=== PATIENT | female | born 1995 | race Caucasian/White ===

== ENCOUNTER 2017-09-23 18:54 | Inpatient (IN) | payer OTHER ==
[~2017-09-23] VITALS: Ht 170.2 cm; Wt 68.0 kg
[~2017-09-23 18:54] MED LIST: AZIT250 PO; Colace100 MG PO; IBUP600 PO; IBUP800 PO; OXYACE5T PO; RXHYDACE PO; TRAM50 PO; Verotin-Gr Cap1 EACH PO
[2017-09-23 19:56] LABS: BASOPHILS ABSOLUTE AUTO 0.03 K/mm3 (0.00-0.23); BASOPHILS PERCENT AUTO 0 % (0-2); EOSINOPHILS ABSOLUTE AUTO 0.05 K/mm3 (0.00-0.68); EOSINOPHILS PERCENT AUTO 0 % (0-6); Hematocrit 36.6 % (33.0-51.0); Hemoglobin 11.8 g/dL (11.5-16.0); IMMATURE GRAN ABSOLUTE AUTO 0.04 K/mm3 (0.00-0.10); IMMATURE GRAN PERCENT AUTO 0 % (0-1); LYMPHOCYTES ABSOLUTE AUTO 1.95 K/mm3 (0.84-5.20); LYMPHOCYTES PERCENT AUTO 16 % (21-46); MONOCYTES ABSOLUTE AUTO 0.66 K/mm3 (0.16-1.47); MONOCYTES PERCENT AUTO 5 % (4-13); Mean Corpuscular HGB 25.4 pg (26.0-34.0); Mean Corpuscular HGB Conc 32.2 g/dL (31.5-36.5); Mean Corpuscular Volume 79 fL (80-100); Mean Platelet Volume 9.4 fL (9.1-12.4); NEUTROPHILS PERCENT AUTO 78 % (41-73); Platelet Count 346 K/mm3 (150-400); RDW Coefficient Variation 18.1 % (11.7-14.2); RDW Standard Deviation 50.8 fL (35.1-46.3); Red Blood Cell Count 4.64 M/mm3 (3.80-5.20); White Blood Cell Count 12.13 K/mm3 (4.00-11.30)
[2017-09-23 20:26] LABS: U Amphetamine Screen Not Detected; U Barbituate Screen Not Detected; U Benzodiazapine Screen Not Detected; U Buprenorphine Screen Not Detected; U Cannabinoids Screen DETECTED; U Cocaine Screen Not Detected; U Methadone Screen Not Detected; U Methamphetamine Screen Not Detected; U Opiates Screen Not Detected; U Oxycodone Screen Not Detected; U Phencyclidine Screen Not Detected; U Propoxyphene Screen Not Detected
[2017-09-25 07:35] LABS: Hepatitis C Antibody Non Reactive (NR)
[2017-09-25] MEDS ORDERED: IBUP800 PO (11:34)
[2017-09-25 15:13] LABS: HSV II IgG Type Specific Ab Negative (NEG); Herpes Simplex IgM Antibody Positive (NEG)
== END 2017-09-25 20:20 | disposition home or self-care (01) | DRG 775 ==
LOC: OBS 18:54 → BC 18:57 → OBS 19:30 → BC 19:31
PROVIDERS: Obstetrics & Gynecology
PROC: 10E0XZZ Delivery of Products of Conception, External Approach (ICD-10-PCS; principal; 2017-09-23)
DX: O80 Encounter for full-term uncomplicated delivery (principal); Z37.0 Single live birth; Z3A.39 39 weeks gestation of pregnancy
CPT/HCPCS: 36415; 85025; 86694; 86695; 86696; 86704; 86708; 86709; 86762; 86803; 86850; 86900; 86901; 87340; 87389; G0480; J0290; J1885; J2210; J2590; J7120

== ENCOUNTER 2019-04-26 11:50 | Inpatient (IN) | payer OTHER ==
[~2019-04-26] VITALS: Ht 170.2 cm; Wt 68.0 kg
[2019-04-26 12:33] LABS: BASOPHILS ABSOLUTE AUTO 0.03 K/mm3 (0.00-0.23); BASOPHILS PERCENT AUTO 0 % (0-2); EOSINOPHILS ABSOLUTE AUTO 0.05 K/mm3 (0.00-0.68); EOSINOPHILS PERCENT AUTO 0 % (0-6); Hematocrit 29.7 % (33.0-51.0); Hemoglobin 8.9 g/dL (11.5-16.0); IMMATURE GRAN ABSOLUTE AUTO 0.16 K/mm3 (0.00-0.10); IMMATURE GRAN PERCENT AUTO 1 % (0-1); LYMPHOCYTES ABSOLUTE AUTO 1.91 K/mm3 (0.84-5.20); LYMPHOCYTES PERCENT AUTO 15 % (21-46); MONOCYTES ABSOLUTE AUTO 0.87 K/mm3 (0.16-1.47); MONOCYTES PERCENT AUTO 7 % (4-13); Mean Corpuscular HGB 22.5 pg (26.0-34.0); Mean Corpuscular Volume 75 fL (80-100); Mean Platelet Volume 9.7 fL (9.1-12.4); NEUTROPHILS ABSOLUTE AUTO 9.81 K/mm3 (1.96-9.15); NEUTROPHILS PERCENT AUTO 77 % (41-73); NRBC ABSOLUTE 0.02 K/mm3 (0.00-0.02); NRBC Auto 0.2 /100 WBC (0.0-0.2); Platelet Count 276 K/mm3 (150-400); RDW Coefficient Variation 17.1 % (11.7-14.2); RDW Standard Deviation 46.3 fL (35.1-46.3); Red Blood Cell Count 3.96 M/mm3 (3.80-5.20); White Blood Cell Count 12.83 K/mm3 (4.00-11.30)
[2019-04-27 05:30] LABS: Hematocrit 27.3 % (33.0-51.0); Hemoglobin 8.2 g/dL (11.5-16.0); Mean Corpuscular HGB 22.5 pg (26.0-34.0); Mean Corpuscular Volume 75 fL (80-100); Mean Platelet Volume 10.2 fL (9.1-12.4); NRBC ABSOLUTE 0.02 K/mm3 (0.00-0.02); NRBC Auto 0.1 /100 WBC (0.0-0.2); Platelet Count 231 K/mm3 (150-400); Red Blood Cell Count 3.64 M/mm3 (3.80-5.20); White Blood Cell Count 14.11 K/mm3 (4.00-11.30)
--- NOTE | 2019-04-27 06:49 | NUR ---
dental laboratory worker came out to inform rn that pt was sleeping with the baby in the bed and was not easily aroused. rn went into room and woke pt up to explain that baby needs to be placed in bassinet when pt is drowsy or sleeping.
--- NOTE | 2019-04-27 08:30 | NUR ---
PT AWAKEN FOR VS. ENCOURAGED TO USE BRP R/T DISPLACED UTERUS. PT UP TO BRP AND VOIDED. CONSENTED TO UTOX AFTER DISCUSSING REASONS THAT IT IS IMPORTANT FOR PT TO BE HONEST WITH STAFF ABOUT DRUG USE IF SHE DESIRES HELP/TREATMENT. PT VERBALLY CONSENTS. LINENS CHANGED, ROOM CLEANED, PT R/T BED AND VERBALLY ADMITS TO METH USE, LAST USE 1 WEEK AGO. PT ENCOURAGED TO BE OPEN ABOUT HER USE AND PT ADMITS SHE DOES WANT TO GET CLEAN. PT CONCERNED SHE WILL NOT LEAVE HOSPITAL WITH NB. PT BREAKS DOWN AND CRIES WHEN ASKED ABOUT HER OTHER CHILDREN. STATES SHE HAS NO RELATIONSHIP WITH THEM. PT STATES SHE WOULD BE WILLING TO DO INPATIENT TREATMENT. REPORTS SHE IS IN A SAFE RELATIONSHIP WITH STEPHY WHO IS CURRENTLY CLEAN. HE SUPPORTS HER GETTING CLEAN. SHE REPORTS A GOOD RELATIONSHIP WITH HER SISTER WHO IS ALSO CLEAN AND HAS A GOOD SUPPORT PERSON, TAZ, WHO WAS AT THE DELIVERY A SUPPORT PERSON. SHE STATES SHE LIVES AT A [facility] IN [facility] WITH A GENTLEMAN AND REPORTS SHE IS IN A HOME THAT THERE IS NO DRUG USE. PT ENCOURAGED TO WORK ON PAPER WORK AND FILL OUT [employer] PAPERWORK TO GET ADDITIONAL SUPPORT. CONSENTED TO A C.O.R.E. REFERRAL. DISCUSSED WITH HER THAT Nikhil FORRESTER CNM, DR. CANO AND STAFF WERE ALL HERE TO HELP HER AND FACILITATE IN HER GETTING CLEAN IF SHE DESIRED BUT ENCOURAGED TO BE OPEN AND HONEST WITH. INFORMED HER THAT [facility] HAS BEEN NOTIFIED AND THAT THEY WILL BE SENDING A WORKER OUT TODAY AND REASSURED HER THAT THIS WAS ALL TO HELP HER. PT DOES HAVE MULTIPLE RINGS ON AND LEFT THUMB WAS NOTED TO BE SWOLLEN. ENCOURAGED HER TO REMOVE RINGS. PT WAS UNABLE TO DO A RING CUTTER WAS BROUGHT IN TO REMOVE THE RINGS. ALL RINGS PLACED IN A LABELED SPECI CUP AND GIVEN TO PATIENT. PT EATING BREAKFAST AND INTERACTING WITH ARI AND Logan KEYES.
[2019-04-27 09:36] LABS: U Amphetamine Screen DETECTED; U Barbituate Screen Not Detected; U Benzodiazapine Screen Not Detected; U Buprenorphine Screen Not Detected; U Cannabinoids Screen DETECTED; U Cocaine Screen Not Detected; U Methadone Screen Not Detected; U Methamphetamine Screen DETECTED; U Opiates Screen Not Detected; U Oxycodone Screen Not Detected; U Phencyclidine Screen Not Detected; U Propoxyphene Screen Not Detected
--- NOTE | 2019-04-27 13:50 | NUR ---
SAFE SLEEPING DISCUSSED WITH MOTHER THE IMPORTANCE OF NOT SLEEPING WHILE HOLDING BABY IN BED. PATIENT VERBALIZED UNDERSTANING FOR THE SAFTEY OF THE SHE SHOULD BE PLACED IN HER CRIB IF PT IS DROWSY.
--- NOTE | 2019-04-27 14:14 | NUR ---
BOTTLE FEEDING ASSIST MOM HOLDING SLEEPING BABY, SHE REPORTS THAT SHE PLANS TO BOTTLE FEED AND THAT SHE FED HER OTHER BABIES VIA BOTTLE. INSTRUCTED IN PACED BOTTLE FEEDING AND BOTTLE FEEDING HAND OUT GIVEN.
--- NOTE | 2019-04-27 15:00 | NUR ---
pt verbalizes understanding. no questions at this time. pt would like us to make her ppfu visit with shayna boyce cnm. plan d/c to boarder this afternoon.
--- NOTE | 2019-04-27 15:07 | NUR ---
CORE REFERAL CORE REFERAL FILLED OUT AND FAXED. PATIENT IS AWARE THAT THIS SERVICE WILL BE CONTACTING HER.
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
--- NOTE | 2019-04-27 15:22 | NUR ---
FRIEND TAZ HERE TO VISIT PT. SHE REPORTS WITNESSING "THEIR" DRUG USE. WHEN ASKED WHAT DRUGS STEPHY MAY BE USING SHE REPORTS SHE BELIEVES METH AND SAW "SOMETHING ON SOME FOIL" ONE TIME. TAZ APPEARS TO BE ADVOCATING FOR THEIR SOBRIETY. STEPHY THIS AFTERNOON SEEMS TO BE MORE DROWSY AND DOESN'T WAKE WHEN BUMPED. HE FALLS ASLEEP DURING A SCHEDULED TIME OF D/C TEACHING THAT WE CAN PREARRANGED TO SIT DOWN AND TALK ABOUT TOGETHER. LEFT MESSAGE WITH UNIVERSITY LIBRARIAN SOCORRO TO PLEASE CALL BACK FOR UPDATE ON STEPHY'S BEHAVIOR SINCE I HAD PREVIOUSLY REPORTED HE HAD BEEN ACTING APPROPRIATELY AND INGRID HAD STATED HE WAS CLEAN AND DID NOT USE DRUGS.
--- NOTE | 2019-04-27 16:04 | NUR ---
PT AMBULATING OUTSIDE WITH STEPHY. THIS IS THEIR THIRD TIME OUTSIDE TO WALK. EACH TRIP OUTSIDE ABOUT 30 MIN.
--- NOTE | 2019-04-27 16:45 | NUR ---
BOARDER STATUS PT STILL UNABLE TO NAME , VERBALIZES UNDERSTAND THAT SHE HAS 5 DAYS TO NAME , AND PATERNITY NOW MUST BE COMPLETLED OUTSIDE THE HOSPITAL. MOTHER IS NOW D/C TO BOARDER STATUS.
[2019-04-28 09:08] LABS: HBSAG SCREEN Negative (Negative); HEP A AB, IGM Negative (Negative); HEP B CORE AB, TOT Negative (Negative); HEP C VIRUS AB <0.1 (0.0-0.9)
== END 2019-04-27 16:45 | disposition home or self-care (01) | DRG 806 ==
LOC: OBS 11:50 → BC 12:04
PROVIDERS: ADMIT Advanced Practice Midwife
PROC: 10E0XZZ Delivery of Products of Conception, External Approach (ICD-10-PCS; principal; 2019-04-26)
PROC: 10907ZC Drainage of Amniotic Fluid, Therapeutic from Products of Conception, Via Natural or Artificial Opening (ICD-10-PCS; 2019-04-26)
DX: O77.0 Labor and delivery complicated by meconium in amniotic fluid (principal); O99.324 Drug use complicating childbirth; Z37.0 Single live birth; Z3A.00 Weeks of gestation of pregnancy not specified; O43.123 Velamentous insertion of umbilical cord, third trimester; F19.90 Other psychoactive substance use, unspecified, uncomplicated; O36.5930 Maternal care for other known or suspected poor fetal growth, third trimester, not applicable or unspecified
CPT/HCPCS: 36415; 59025; 85025; 85027; 86317; 86592; 86703; 86704; 86708; 86762; 86803; 86850; 86900; 86901; 87340; G0480; J0290; J1050; J1885; J2210; J2590; J7120

== ENCOUNTER 2020-09-05 21:17 | Inpatient (IN) | payer OTHER ==
[~2020-09-05] VITALS: Ht 167.6 cm; Wt 59.9 kg
[2020-09-05 21:57] LABS: BASOPHILS ABSOLUTE AUTO 0.03 K/mm3 (0.00-0.23); BASOPHILS PERCENT AUTO 0 % (0-2); EOSINOPHILS ABSOLUTE AUTO 0.01 K/mm3 (0.00-0.68); EOSINOPHILS PERCENT AUTO 0 % (0-6); Hematocrit 39.6 % (33.0-51.0); Hemoglobin 12.7 g/dL (11.5-16.0); IMMATURE GRAN PERCENT AUTO 1 % (0-1); LYMPHOCYTES ABSOLUTE AUTO 0.98 K/mm3 (0.84-5.20); LYMPHOCYTES PERCENT AUTO 6 % (21-46); MONOCYTES ABSOLUTE AUTO 1.01 K/mm3 (0.16-1.47); MONOCYTES PERCENT AUTO 6 % (4-13); Mean Corpuscular HGB Conc 32.1 g/dL (31.5-36.5); Mean Corpuscular Volume 84 fL (80-100); Mean Platelet Volume 9.4 fL (9.1-12.4); NEUTROPHILS ABSOLUTE AUTO 14.49 K/mm3 (1.96-9.15); NEUTROPHILS PERCENT AUTO 87 % (41-73); Platelet Count 267 K/mm3 (150-400); RDW Coefficient Variation 14.1 % (11.7-14.2); RDW Standard Deviation 43.6 fL (35.1-46.3); Red Blood Cell Count 4.71 M/mm3 (3.80-5.20); White Blood Cell Count 16.62 K/mm3 (4.00-11.30)
[2020-09-05 22:14] LABS: Alanine Aminotransfer (ALT/SGP 18 U/L (12-78); Albumin, Blood 3.3 g/dL (3.4-5.0); Albumin/Globulin Ratio 0.8 (0.8-1.8); Alk Phos 122 U/L (50-136); Anion Gap 9 mmol/L (6-16); Aspartate Aminotrans (AST/SGOT 9 U/L (12-37); Bilirubin, Total 0.6 mg/dL (0.1-1.0); Blood Urea Nitrogen 8 mg/dL (8-24); Bun/Creatinine Ratio 9.3 (12.0-20.0); CO2, Blood 23 mmol/L (21-32); Chloride, Blood 99 mmol/L (98-108); Creatinine, Blood 0.86 mg/dL (0.40-1.00); Globulin, Blood 4.4 g/dL (2.2-4.0); Glomerular Filtration Rate >60 (60-); Glucose, Blood 182 mg/dL (70-99); Potassium, Blood 3.8 mmol/L (3.5-5.5); Sodium, Blood 131 mmol/L (136-145); Total Protein, Blood 7.7 g/dL (6.4-8.2)
[2020-09-05 23:20] LABS: Source, Urine Clean Catch
[2020-09-05 23:22] LABS: Bilirubin, Urine Neg (Neg); Blood, Urine 3+ (Neg); Glucose Qualitative, Urine Neg (Neg); Ketones, Urine Neg (Neg); Leukocyte Esterase, Urine 3+ (Neg); Nitrite, Urine Pos (Neg); Protein, Urine 3+ (Neg); Urobilinogen, Urine NORM (Normal)
[2020-09-05 23:29] LABS: Appearance, Urine Cloudy (Clear); Color, Urine Yellow (P-Yellow)
[2020-09-05 23:30] LABS: Bacteria Many /hpf; Squamous Epithelial Cells Few /hpf (Few); White Blood Cells, Urine TNTC /hpf (0-5)
[2020-09-05 23:34] LABS: Influenza A, PCR Negative (NEGATIVE); Influenza B, PCR Negative (NEGATIVE); Resp Syncytial Virus, PCR Negative (NEGATIVE); SARS-Cov-2 (COVID-19) PCR, MMC Negative (NEGATIVE)
--- NOTE | 2020-09-06 07:31 | NUR ---
ADMIT NOTE/SHIFT SUMMARY PATIENT VERY SLEEPY UPON ADMIT. PATIENT EASILY AWAKES TO TOUCH BUT QUICKLY FALLS BACK TO SLEEP WHEN BEING TALKED TOO. PATIENT DID BECOME VERY ANXIOUS FOR A BREIF PERIOD OF TIME WHEN HER SIGNIFICANT OTHER WAS LEAVING BUT THEN FELL BACK TO SLEEP. PATIENT DID AWAKE AFTER SEVERAL HOURS TO USE THE BSC. PATIENT ATE A SMALL SNAKE AND THEN FELL BACK TO SLEEP. PATIENT APPEARS TO HAVE BEEN SLEEPING WELL SINCE. IV FLUIDS RUNNING PER ORDERS. PATIENT MEDICATED FOR ELEVATED TEMP X ONE. VITAL SIGNS CHARTED. REPORT GIVEN TO ONCOMING RN.
--- NOTE | 2020-09-06 07:31 | NUR ---
ASSUMED CARE: PT RESTING QUIETLY AT THIS TIME. NSR ON TELE, NO ACUTE NEEDS OR CONCERNS. IVF RUNNING AT THIS TIME.
--- NOTE | 2020-09-06 08:00 | NUR ---
PT GAVE THIS STUDENT RN PERMISSION TO CARE FOR HER TODAY, 09/06/20.
--- NOTE | 2020-09-06 13:03 | NUR ---
RN STUDENT SHIFT SUMMARY: PT RESTING QUIETLY IN BED T/O SHIFT.PT UP TO BSC X1 WITH SBA. PT REMAINS VERY SLEEPY, AWAKES EASILY TO TOUCH OR VOICE BUT FALLS BACK ASLEEP QUICKLY. IV FLUIDS RUNNING PER ORDER. MEDICATED FOR ELEVATED TEMP X1 THIS SHIFT. PATIENT REMAINS RESTING IN BED, CALL LIGHT IN REACH, BED AT LOWEST POSITION. REPORT GIVEN TO RN CONTINUING CARE.
--- NOTE | 2020-09-06 15:05 | NUR ---
REPORT GIVEN TO ALVIN MC. PT TRANSFERRED VIA WHEEL CHAIR BY SITE HEAD STAFF. PT'S SISTER WAS GIVEN UPDATE PRIOR TO PT TRANSFER. NO FURTHER NEEDS OR CONCERNS AT THIS TIME.
--- NOTE | 2020-09-06 19:14 | NUR ---
SHIFT SUMMARY: PATIENT XFR FROM PCU-02 THIS SHIFT. PT A&O; SLEEPY; CALM AND COOPERATIVE WITH CARE. MEDICATED FOR ABD/BACK PAIN PER EMAR. POSS UTI; IV FLUIDS & ABX CONTINUING. REPORT GIVEN TO ONCOMING RN.
[2020-09-07 05:00] LABS: BASOPHILS ABSOLUTE AUTO 0.03 K/mm3 (0.00-0.23); BASOPHILS PERCENT AUTO 0 % (0-2); EOSINOPHILS ABSOLUTE AUTO 0.12 K/mm3 (0.00-0.68); EOSINOPHILS PERCENT AUTO 1 % (0-6); Hematocrit 33.2 % (33.0-51.0); Hemoglobin 10.4 g/dL (11.5-16.0); IMMATURE GRAN ABSOLUTE AUTO 0.07 K/mm3 (0.00-0.10); IMMATURE GRAN PERCENT AUTO 1 % (0-1); LYMPHOCYTES ABSOLUTE AUTO 1.23 K/mm3 (0.84-5.20); LYMPHOCYTES PERCENT AUTO 9 % (21-46); MONOCYTES ABSOLUTE AUTO 1.23 K/mm3 (0.16-1.47); MONOCYTES PERCENT AUTO 9 % (4-13); Mean Corpuscular HGB 26.6 pg (26.0-34.0); Mean Corpuscular HGB Conc 31.3 g/dL (31.5-36.5); Mean Corpuscular Volume 85 fL (80-100); Mean Platelet Volume 9.6 fL (9.1-12.4); NEUTROPHILS ABSOLUTE AUTO 10.58 K/mm3 (1.96-9.15); NEUTROPHILS PERCENT AUTO 80 % (41-73); Platelet Count 234 K/mm3 (150-400); RDW Coefficient Variation 14.4 % (11.7-14.2); RDW Standard Deviation 44.9 fL (35.1-46.3); Red Blood Cell Count 3.91 M/mm3 (3.80-5.20); White Blood Cell Count 13.26 K/mm3 (4.00-11.30)
--- NOTE | 2020-09-07 05:25 | NUR ---
HEEL SEAT SANDER SUMMARY PT LETHARGIC DURING BEGINNING OF SHIFT. ONLY AWAKE FOR SHORT PERIODS OF TIME DURING ASSESMENT AND VITALS. AROUND 0400 PT BEGAN CRYING LOUDLY AND APPEARED VERY ANXIOUS. THERAPUTIC COMMUNICATION WAS USED TO TRY AND HELP CALM HER DOWN. CLOTH NAPPING SUPERVISOR PROVIDER CONSULTED AND STATED NO NEW ORDERS AT THIS TIME. WARM SHOWER PROVIDED SOME RELEIF, PT CURRENTLY SITTING UP IN BED WATCHING TV. CONTINUES TO BE TACHYCARDIC SINCE ADMIT. NO ACUTE NEEDS AT THIS TIME. BED IN LOWEST POSITION WITH CALL LIGHT IN REACH. WILL CONTINUE TO MONITOR AND REPORT TO ONCOMING RN.
[2020-09-07 05:31] LABS: Alanine Aminotransfer (ALT/SGP 46 U/L (12-78); Albumin, Blood 2.4 g/dL (3.4-5.0); Albumin/Globulin Ratio 0.7 (0.8-1.8); Alk Phos 131 U/L (50-136); Anion Gap 9 mmol/L (6-16); Aspartate Aminotrans (AST/SGOT 34 U/L (12-37); Bilirubin, Total 0.3 mg/dL (0.1-1.0); Blood Urea Nitrogen 9 mg/dL (8-24); Bun/Creatinine Ratio 14.2 (12.0-20.0); CO2, Blood 19 mmol/L (21-32); Chloride, Blood 109 mmol/L (98-108); Creatinine, Blood 0.64 mg/dL (0.40-1.00); Globulin, Blood 3.6 g/dL (2.2-4.0); Glomerular Filtration Rate >60 (60-); Glucose, Blood 130 mg/dL (70-99); Magnesium, Blood 1.5 mg/dL (1.6-2.4); Sodium, Blood 137 mmol/L (136-145)
--- NOTE | 2020-09-07 17:48 | NUR ---
SHIFT SUMMARY PT A&O AND INDEPENDENT IN ROOM. PT IS ABLE TO MAKE NEEDS KNOWN. PT HAS BEEN ACCEPTING OF CARE DURING SHIFT. PT HAS BEEN ASLEEP MOST OF SHIFT. WHEN PT IS AWAKE SHE REQUEST FOOD THEN WILL EAT AND GO BACK TO SLEEP. PT HAS BEEN PLESANT TO HELP DURING SHIFT. PT IS CURENTLY IN ROOM SLEEPING. CALL LIGHT W/IN REACH.
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
--- NOTE | 2020-09-07 19:41 | NUR ---
AWAKE. BOYFRIEND WAS VISITING BUT LEFT SOON AFTER ROUNDING. RECEIVED MOM FOR CONSTIPATION. CALL LIGHT IN REACH
--- NOTE | 2020-09-08 03:59 | NUR ---
SHIFT SUMMARY HAS BEEN RESTING QUIETLY WITH OCCASIONAL INTERRUPTIONS THIS SHIFT. SAID INTERRUPTIONS SEEMED TO MAINLY CONSIST OF REQUESTS FOR FOOD. CALL LIGHT IN REACH.
[2020-09-08 05:28] LABS: BASOPHILS ABSOLUTE AUTO 0.03 K/mm3 (0.00-0.23); BASOPHILS PERCENT AUTO 0 % (0-2); EOSINOPHILS ABSOLUTE AUTO 0.24 K/mm3 (0.00-0.68); EOSINOPHILS PERCENT AUTO 3 % (0-6); Hematocrit 31.9 % (33.0-51.0); Hemoglobin 10.2 g/dL (11.5-16.0); IMMATURE GRAN ABSOLUTE AUTO 0.03 K/mm3 (0.00-0.10); IMMATURE GRAN PERCENT AUTO 0 % (0-1); LYMPHOCYTES ABSOLUTE AUTO 2.15 K/mm3 (0.84-5.20); LYMPHOCYTES PERCENT AUTO 22 % (21-46); MONOCYTES ABSOLUTE AUTO 0.94 K/mm3 (0.16-1.47); MONOCYTES PERCENT AUTO 10 % (4-13); Mean Corpuscular HGB 27.1 pg (26.0-34.0); Mean Corpuscular Volume 85 fL (80-100); Mean Platelet Volume 9.4 fL (9.1-12.4); NEUTROPHILS ABSOLUTE AUTO 6.21 K/mm3 (1.96-9.15); NEUTROPHILS PERCENT AUTO 65 % (41-73); Platelet Count 242 K/mm3 (150-400); RDW Coefficient Variation 14.6 % (11.7-14.2); RDW Standard Deviation 45.3 fL (35.1-46.3); Red Blood Cell Count 3.77 M/mm3 (3.80-5.20)
[2020-09-08 05:51] LABS: Anion Gap 5 mmol/L (6-16); Blood Urea Nitrogen 7 mg/dL (8-24); Bun/Creatinine Ratio 11.9 (12.0-20.0); CO2, Blood 25 mmol/L (21-32); Calcium, Blood 8.3 mg/dL (8.5-10.1); Chloride, Blood 110 mmol/L (98-108); Creatinine, Blood 0.59 mg/dL (0.40-1.00); Glomerular Filtration Rate >60 (60-); Glucose, Blood 123 mg/dL (70-99); Potassium, Blood 3.8 mmol/L (3.5-5.5); Sodium, Blood 140 mmol/L (136-145)
[2020-09-08] MEDS ORDERED: LEVFLO500 PO (12:44)
--- NOTE | 2020-09-08 12:58 | NUR ---
DISCHARGE NOTE PATIENT DISCHARGED TO HOME. PATIENT ALERT AND ORIENTED, INDEPENDENT THIS SHIFT. PATIENT DRESSED INDEPENDENTLY AND WISHED TO LEAVE PRIOR TO DISCHARGE PAPERWORK WAS COMPLETED. PATIENT PROVIDED WITH DISCHARGE AND MEDICATION INFORMATION. PATIENT STATES NO QUESTIONS AT THIS TIME. IV REMOVED PRIOR TO DISCHARGE. PATIENT LEFT WALKING, DENYING NEED FOR WHEELCHAIR OR WAITING FOR TRANSPORTATION.
--- NOTE | 2020-09-09 01:30 | NUR ---
PT CALLED WITH QUESTIONS REGARDING DISCHARGE MEDICATION
== END 2020-09-08 12:57 | disposition home or self-care (01) | DRG 872 ==
LOC: ER 21:17 → PCU 09-06 00:50 → MEDS 09-06 14:56
PROVIDERS: Emergency Medicine; Internal Medicine; Physician Assistant; ADMIT Internal Medicine
DX: A41.51 Sepsis due to Escherichia coli [E. coli] (principal); N39.0 Urinary tract infection, site not specified; E87.1 Hypo-osmolality and hyponatremia; R65.20 Severe sepsis without septic shock; E83.42 Hypomagnesemia; Z20.822 Contact with and (suspected) exposure to COVID-19; F19.10 Other psychoactive substance abuse, uncomplicated; F17.210 Nicotine dependence, cigarettes, uncomplicated; R79.89 Other specified abnormal findings of blood chemistry
CPT/HCPCS: 0241U; 36415; 71045; 80048; 80053; 81001; 81025; 83605; 83690; 83735; 85025; 85651; 87040; 87077; 87086; 87186; 96361; 96365; 96375; 99284-25; A9270; J0696; J1885; J2060; J2405; J3475; J7030; J7120

== ENCOUNTER 2020-11-11 22:05 | Emergency (ER) | payer OTHER ==
[~2020-11-11] VITALS: Ht 167.6 cm; Wt 56.7 kg
[~2020-11-11 22:05] MED LIST changes: +LEVFLO500 PO
[2020-11-11] MEDS ORDERED: Bactrim Ds Tab1 EACH PO (23:34)
== END 2020-11-11 23:48 | disposition home or self-care (01) ==
LOC: ER 22:05
DX: L02.411 Cutaneous abscess of right axilla (principal); F17.210 Nicotine dependence, cigarettes, uncomplicated
CPT/HCPCS: 10060; 99282-25

== ENCOUNTER 2021-01-07 09:29 | Emergency (ER) | payer OTHER ==
[~2021-01-07] VITALS: Ht 167.6 cm; Wt 54.9 kg
[~2021-01-07 09:29] MED LIST changes: +Bactrim Ds Tab1 EACH PO
== END 2021-01-07 09:51 | disposition home or self-care (01) ==
LOC: ER 09:29
DX: H00.014 Hordeolum externum left upper eyelid (principal); F17.210 Nicotine dependence, cigarettes, uncomplicated
CPT/HCPCS: 99282

== ENCOUNTER 2021-04-09 21:05 | Emergency (ER) | payer OTHER ==
[~2021-04-09] VITALS: Ht 170.2 cm; Wt 56.7 kg
[2021-04-09] MEDS ORDERED: IBUP800 PO (23:25)
== END 2021-04-09 23:58 | disposition home or self-care (01) ==
LOC: ER 21:05
DX: L03.012 Cellulitis of left finger (principal); F17.210 Nicotine dependence, cigarettes, uncomplicated
CPT/HCPCS: 26010; 73140; 99283-25; A9270

== ENCOUNTER 2022-12-25 06:47 | Emergency (ER) | payer OTHER ==
[~2022-12-25] VITALS: Ht 167.6 cm; Wt 63.5 kg
[2022-12-25 07:05] VITALS: BP 130/76
== END 2022-12-25 08:55 | disposition left against medical advice (07) ==
LOC: ER 06:47
DX: L02.411 Cutaneous abscess of right axilla (principal); F17.210 Nicotine dependence, cigarettes, uncomplicated
CPT/HCPCS: 10060; 99283-25; A9270

== ENCOUNTER 2024-03-07 18:37 | Emergency (ER) | payer OTHER ==
[~2024-03-07] VITALS: Ht 170.2 cm; Wt 65.8 kg
[~2024-03-07 18:37] MED LIST changes: +ALLEGRA ALLERGY60 MG PO
[2024-03-07 19:18] VITALS: BP 131/66
[2024-03-07] MEDS ORDERED: Silver Sulfadiazine 1% Cream 25 APPLIC/25 GM Tube TOP ONE (20:20)
== END 2024-03-07 21:23 | disposition home or self-care (01) ==
LOC: ER 18:37
DX: T24.211A Burn of second degree of right thigh, initial encounter (principal); T24.202A Burn of second degree of unspecified site of left lower limb, except ankle and foot, initial encounter; T23.271A Burn of second degree of right wrist, initial encounter; X19.XXXA Contact with other heat and hot substances, initial encounter; F17.210 Nicotine dependence, cigarettes, uncomplicated; Z79.899 Other long term (current) drug therapy
CPT/HCPCS: 99282; A9270

== ENCOUNTER 2024-07-23 18:36 | Emergency (ER) | payer OTHER ==
[~2024-07-23] VITALS: Ht 170.2 cm; Wt 68.0 kg
[2024-07-23 18:53] VITALS: BP 146/82
[2024-07-23] MEDS ORDERED: Bactrim Ds Tab1 EACH PO (18:58)
[2024-07-23] MEDS ORDERED: Trimethoprim/Sulfamethoxazole DS Tab PO ONE (19:00)
== END 2024-07-23 19:07 | disposition home or self-care (01) ==
LOC: ER 18:36
DX: L02.411 Cutaneous abscess of right axilla (principal); F17.210 Nicotine dependence, cigarettes, uncomplicated; Z79.899 Other long term (current) drug therapy
CPT/HCPCS: 99282; A9270

== ENCOUNTER → 2024-08-30 | Outpatient (CLI) | payer OTHER ==
[2024-09-01 13:33] LABS: Candida Group, PCR NOT DETECTED (NOT DETECT); Candida glabrata-krusei, PCR NOT DETECTED (NOT DETECT)
[2024-09-01 13:56] LABS: Bacterial Vaginosis PCR Positive (NEGATIVE)
[2024-09-01 14:10] LABS: Chlamydia Trachomatis Vaginal NOT DETECTED (NOT DETECT); Neisseria Gonorrhoea Vaginal NOT DETECTED (NOT DETECT)
[2024-09-06 16:36] LABS: HPV HIGH RISK BY TMA Detected; HPV SOURCE Cervical
[2024-09-07 14:10] LABS: HPV GENOTYPE 16 BY TMA Not Detected; HPV GENOTYPE 18/45 BY TMA Detected; HPVG SOURCE Cervical
== END ==
LOC: LAB 15:55 → LAB SHORT 15:55
PROVIDERS: Physician Assistant
DX: N89.8 Other specified noninflammatory disorders of vagina (principal); Z12.4 Encounter for screening for malignant neoplasm of cervix
CPT/HCPCS: 81515; 87491; 87591; 87624; 87625; G0123

== ENCOUNTER 2025-03-28 04:43 | Emergency (ER) | payer OTHER ==
[~2025-03-28] VITALS: Ht 167.6 cm; Wt 63.5 kg
[2025-03-28 04:53] VITALS: BP 119/70
[2025-03-28] MEDS ORDERED: Trimethoprim/Sulfamethoxazole DS Tab PO ONE (05:40)
[2025-03-28] MEDS ORDERED: SULTRIDS PO (05:43)
== END 2025-03-28 05:48 | disposition home or self-care (01) ==
LOC: ER 04:43
DX: L02.412 Cutaneous abscess of left axilla (principal); F17.210 Nicotine dependence, cigarettes, uncomplicated
CPT/HCPCS: 10061; 87081; 99283-25; A9270

== ENCOUNTER 2025-04-16 16:48 | Emergency (ER) | payer OTHER ==
[~2025-04-16] VITALS: Ht 170.2 cm; Wt 61.2 kg
[~2025-04-16 16:48] MED LIST changes: +SULTRIDS PO
[2025-04-16 16:54] VITALS: BP 124/81
== END 2025-04-16 17:42 | disposition home or self-care (01) ==
LOC: ER 16:48
DX: L02.412 Cutaneous abscess of left axilla (principal); Z79.899 Other long term (current) drug therapy
CPT/HCPCS: 10060; 99282-25